=== PATIENT | male | born 1980 | race Two or more races ===

== ENCOUNTER 2024-10-18 10:36 | Emergency (ER) | payer OTHER ==
[~2024-10-18] VITALS: Ht 185.4 cm; Wt 106.2 kg
[2024-10-18 11:30] LABS: BASO % 0.7 % (0.0-1.0); EOS # 0.2 10^3/uL (0.0-0.5); EOS % 2.8 % (0.0-3.0); HEMATOCRIT 43.5 % (42.0-52.0); HEMOGLOBIN 15.5 g/dl (13.5-17.5); LYMPH # 2.3 10^3/uL (1.5-5.0); LYMPH % 36.7 % (24.0-44.0); MEAN CORPUSCULAR HGB CONC 35.6 g/dl (32.0-36.5); MEAN CORPUSCULAR VOLUME 89.9 fl (80.0-96.0); MONO # 0.6 10^3/uL (0.0-0.8); MONO % 9.1 % (2.0-8.0); NEUTROPHILS # 3.1 10^3/uL (1.5-8.5); NEUTROPHILS % 50.2 % (36.0-66.0); PLATELET COUNT, AUTOMATED 220 10^3/uL (150-450); RED BLOOD COUNT 4.84 10^6/uL (4.30-6.10); WHITE BLOOD COUNT 6.2 10^3/uL (4.0-10.0)
[2024-10-18] MEDS: KETOROLAC 30 MG/ML 1ML VIAL IV ONE ×2 (11:43→14:43)
[2024-10-18] MEDS: ONDANSETRON 4MG 2ML VIAL IV ONE (11:43)
[2024-10-18] MEDS ORDERED: ISOVUE-370 76% 100ML VIAL As Ordered ONE (11:43)
[2024-10-18 11:59] LABS: ALBUMIN 3.8 G/DL (3.2-5.2); BILIRUBIN,DIRECT 0.3 MG/DL (<0.4); BILIRUBIN,TOTAL 1.2 MG/DL (0.3-1.2); TOTAL PROTEIN 6.8 G/DL (5.7-8.2)
[2024-10-18] MEDS ORDERED: KETO10TAB PO (13:07)
[2024-10-18] MEDS ORDERED: FLOM0.4C39 PO (13:07)
[2024-10-18] MEDS: TAMSULOSIN 0.4 MG CAP PO ONE (13:22)
[2024-10-18] MEDS: ACETAMINOPHEN *IV* 1,000 MG in IV 1 EA IV ONE (13:22)
[2024-10-18 15:08] VITALS: BP 124/75; TEMP 97; O2SAT 96
== END 2024-10-18 15:14 | disposition home or self-care (01) ==
LOC: M ED 10:36
DX: N20.0 Calculus of kidney (principal); N13.4 Hydroureter; Z87.442 Personal history of urinary calculi; Z79.899 Other long term (current) drug therapy
CPT/HCPCS: 74177; 80047; 80076; 81001; 83690; 85025; 96365; 96366; 96375; 99284; J0131; J1885; J2405; Q9967